=== PATIENT | male | born 1990 | race African-American/Black ===

== ENCOUNTER 2017-12-14 02:08 | Emergency (ER) | payer SELFPAY ==
[2017-12-14 02:26] VITALS: BP 119/80; PULSE 69; TEMP 98.2; BMI 22.1
--- NOTE | 2017-12-14 02:32 | PDOC ---
History of Present Illness - General Chief Complaint: Toothache Stated Complaint: PAIN Time Seen by Provider: 12/14/17 02:24 - History of Present Illness Initial Comments: 27 year old previous healthy male presenting with 6 days of upper right tooth ache. Mak snot recall trauma to the tooth and hasn't had issues with it before. Does not have a regular dentist. Denies fevers, chills nausea vomiting, diarrhea , chest pain, SOB, facial swelling, or other sick symptoms. 12/14/17 03:23 Past History - Past Medical History Allergies/Adverse Reactions: Allergies Allergy/AdvReac Type Severity Reaction Status Date / Time No Known Allergies Allergy Verified 12/14/17 02:28 Home Medications: Ambulatory Orders Ibuprofen [Motrin -] 400 mg PO PRN 12/14/17 Oxycodone HCl/Acetaminophen [Percocet 5-325 mg Tablet -] 1 combo PO Q6H PRN #3 tablet MDD 3 12/14/17 COPD: No - Immunization History Immunization Up to Date: Yes - Suicide/Smoking/Psychosocial Hx Smoking History: Never smoked Have you smoked in the past 12 months: No Information on smoking cessation initiated: No Hx Alcohol Use: No Drug/Substance Use Hx: No Substance Use Type: None Review of Systems - Review of Systems Constitutional: No: Chills, Diaphoresis, Fever HEENTM: No: Blurred Vision Respiratory: No: Cough, Shortness of Breath, Wheezing Cardiac (ROS): No: Irregular Heart Rate : No: Burning, Dysuria Musculoskeletal: No: Joint Pain, Muscle Pain Integumentary: No: Erythema, Lesions, Rash Neurological: No: Numbness, Paresthesia, Tingling Psychiatric: No: Anxiety, Depression *Physical Exam - Vital Signs Last Vital Signs Temp Pulse Resp BP Pulse Ox 98.2 F 69 20 119/80 99 12/14/17 02:22 12/14/17 02:22 12/14/17 02:22 12/14/17 02:22 12/14/17 02:22 - Physical Exam General Appearance: Yes: Nourished, Appropriately Dressed, Apparent Distress, Mild Distress HEENT: positive: EOMI, SHAHNAZ, Normal Voice, Pharynx Normal. negative: Normal ENT Inspection (2nd tooth in poor condition with black appearance. Gums are discolored globally. No pocket of swelling or fluctance near tooth. apthous ulcer on side opposite affected tooth.) Neck: positive: Trachea midline, Normal Thyroid. negative: Tender Respiratory/Chest: positive: Lungs Clear, Normal Breath Sounds. negative: Chest Tender, Respiratory Distress, Accessory Muscle Use Cardiovascular: positive: Regular Rhythm, Regular Rate Gastrointestinal/Abdominal: positive: Normal Bowel Sounds, Flat, Soft. negative : Tender Musculoskeletal: positive: Normal Inspection Extremity: positive: Normal Capillary Refill, Normal Inspection, Normal Range of Motion Integumentary: positive: Normal Color, Dry, Warm Neurologic: positive: Fully Oriented, Alert, Normal Mood/Affect, Normal Response Procedures - Additional Procedures Additional Procedures: other (Dental Block) Progress: 2 CCs of lidocaine were injected superior posterior and towards the line between the 2nd and third molar on the patient's right upper mouth to achieve a dental block. No ill effects were noted and patient's headache actually resolved as well. 12/15/17 14:56 Medical Decision Making - Medical Decision Making 27 year old male presenting with right tooth pain. Otherwise appears well and tolerated dental block well of 2nd tooth. Given ibuprofen 800 as well. Discharged with 4 percocets and dental urgent care follow up instructions to have tooth removed. 12/15/17 14:56 *DC/Admit/Observation/Transfer Diagnosis at time of Disposition: Tooth pain - Discharge Dispostion Disposition: HOME Condition at time of disposition: Improved Admit: No - Prescriptions Prescriptions: Oxycodone HCl/Acetaminophen [Percocet 5-325 mg Tablet -] 1 combo PO Q6H PRN #3 tablet MDD 3 PRN Reason: Pain - Referrals Referrals: [facility] [Provider Group] - Patient Instructions Printed Discharge Instructions: DI for Tooth Decay, DI for Dental Pain Additional Instructions: You need to have your tooth filled or removed by a dentist. Please follow up with dental urgent care below. [phone] [employer] Dentist in [place], [place] Address: [address] [place] [address] [place] [address] Hours: Closed Opens 9AM - Post Discharge Activity
[2017-12-14] MEDS ORDERED: IBUPROFEN 400 MG TABLET (FP) PO ONE ×2 (03:05→03:10)
--- NOTE | 2017-12-14 03:57 | PDOC ---
Attending Attestation - Resident Resident Name: Miriam Esquivel - ED Attending Attestation I have performed the following: I have examined & evaluated the patient, The case was reviewed & discussed with the resident, I agree w/resident's findings & plan, Exceptions are as noted - HPI HPI: 12/14/17 03:53 27y M no pmhx presents with R sided tooth pain x 6 days, in the upper molars. pt states it started hurting one day after he ate. no associated fever/chills. does not remember eating anything hard. on exam pt has possible fx tooth on tooth #2, no pulp material noted no erythema, fluctuance, edema no tenderness elsewhere pt given dental block withimprovement will dc with dental follow up
== END 2017-12-14 04:10 | disposition home or self-care (01) ==
LOC: JER 02:08
PROC: 3E013BZ Introduction of Anesthetic Agent into Subcutaneous Tissue, Percutaneous Approach (ICD-10-PCS; principal; 2017-12-14)
DX: K08.89 Other specified disorders of teeth and supporting structures (principal)
CPT/HCPCS: 99282-25

== ENCOUNTER 2018-02-05 06:16 | Emergency (ER) | payer OTHER ==
--- NOTE | 2018-02-05 06:19 | PDOC ---
History of Present Illness - General Chief Complaint: Pain Stated Complaint: TOOTHACHE SINCE SATURDAY Time Seen by Provider: 02/05/18 06:19 History Source: Patient Exam Limitations: No Limitations - History of Present Illness Initial Comments: 02/05/18 06:27 27M no sig PMHx with cc of pain in tooth #1 and #2 x past 3 days. Pt reports that he works nights and hasn't been able to make it to the dentist. No fever/ chills, swelling to the area. No vomiting, no other sxs. Can go to the dentist this morning, but was suffering with the pain overnight (took 4 ec tylenol tabs without relief) and is requesting pain meds to help alleviate the pain this am. Past History - Past Medical History Allergies/Adverse Reactions: Allergies Allergy/AdvReac Type Severity Reaction Status Date / Time No Known Allergies Allergy Verified 02/05/18 06:18 Home Medications: Ambulatory Orders NK [No Known Home Medication] 02/05/18 COPD: No - Immunization History Immunization Up to Date: Yes - Suicide/Smoking/Psychosocial Hx Smoking History: Never smoked Have you smoked in the past 12 months: No Hx Alcohol Use: No Drug/Substance Use Hx: No Substance Use Type: None Review of Systems - Review of Systems Constitutional: No: Chills, Fever HEENTM: Yes: Mouth Pain, Dental Problems. No: Throat Swelling, Difficulty Swallowing, Mouth Swelling Respiratory: No: Cough, Shortness of Breath Cardiac (ROS): No: Chest Pain Musculoskeletal: No: Back Pain, Joint Pain Integumentary: No: Bruising Neurological: Yes: Headache *Physical Exam - Physical Exam General Appearance: Yes: Nourished, Appropriately Dressed. No: Disheveled HEENT: positive: Other (tooth #2 broken, no swelling around the tooth/no fluctuance/no erythema) Respiratory/Chest: negative: Respiratory Distress Cardiovascular: positive: Regular Rhythm, Regular Rate Extremity: positive: Normal Inspection, Normal Range of Motion Neurologic: positive: Fully Oriented, Alert, Normal Mood/Affect, Normal Response Medical Decision Making - Medical Decision Making 02/05/18 06:31 Pt with dental pain, has a dentist which isn't open yet. +broken tooth #2. No sign of abscess, no systemic sxs. Will give toradol IM and percocet PO (pt is not driving home) in ED and recommend strongly that pt go to dentist this morning - pt agrees. Dc home. *DC/Admit/Observation/Transfer Diagnosis at time of Disposition: Tooth pain - Discharge Dispostion Disposition: HOME Condition at time of disposition: Stable - Referrals - Patient Instructions Printed Discharge Instructions: DI for Dental Pain Additional Instructions: You were seen in the ER for dental pain. You have a broken tooth which needs to either be filled or pulled by a dentist. You were given two medications in the ER this morning (toradol, percocet) to help with your pain. YOU MUST GO TO THE DENTIST THIS MORNING, even if the pain is improved with the medication that we gave you. Your pain will not subside unless you have the tooth dealt with properly. - Post Discharge Activity
[2018-02-05 06:24] VITALS: BP 121/79; PULSE 56; TEMP 98.2; BMI 22.2
[2018-02-05] MEDS ORDERED: KETOROLAC TROMETHAMINE 60 MG/2 ML VIAL ONE (06:26)
[2018-02-05] MEDS ORDERED: KETOROLAC TROMETHAMINE 60 MG/2 ML VIAL IM ONE (06:26)
--- NOTE | 2018-02-05 16:31 | PDOC ---
Patient Follow-up (Call Back) - Post ED Follow - Up Condition at time of discharge: Stable Disposition at time of original discharge: HOME - Disposition Rx Needed: Yes Additional Instructions/Notes: Patient called stating she was unable to get appointment with her dentist today , having pain now that the medication wore off. Her dentist is able to see her in a few days. She is unable to go to dental urgent care as they do not accept her insurance. I will send rx for pain medication and abx. [facility] Reference #: [id number]- no red flags
== END 2018-02-05 06:38 | disposition home or self-care (01) ==
LOC: FER 06:16
PROC: 3E0233Z Introduction of Anti-inflammatory into Muscle, Percutaneous Approach (ICD-10-PCS; principal; 2018-02-05)
DX: K08.89 Other specified disorders of teeth and supporting structures (principal)
CPT/HCPCS: 96372; 99281-25

== ENCOUNTER 2018-02-20 04:03 | Emergency (ER) | payer OTHER ==
[2018-02-20 04:11] VITALS: BP 116/73; PULSE 72; TEMP 98.4; BMI 23.6
[2018-02-20] MEDS ORDERED: AZITHROMYCIN 1 GM PACKET PO ONE (04:17)
[2018-02-20] MEDS ORDERED: AZITHROMYCIN 1 GM PACKET ONE (04:20)
--- NOTE | 2018-02-20 04:20 | PDOC ---
History of Present Illness - General Chief Complaint: Penile Drainage Stated Complaint: STD Time Seen by Provider: 02/20/18 04:15 History Source: Patient Exam Limitations: No Limitations - History of Present Illness Initial Comments: 02/20/18 04:16 This is a 27-year-old male who comes in complaining of penile discharge and an STD. Patient last had unprotected sex approximately 2 weeks ago his partner informed him today that she was diagnosed with an STD. Patient denies any other history of STDs. PAST MEDICAL HISTORY: no significant history PAST SURGICAL HISTORY: no significant history FAMILY HISTORY: no pertinant history SOCIAL HISTORY: Pt lives with family and is employed. MEDICATIONS: reviewed ALLERGIES: As per nursing notes Review of Systems General: No fevers or chills, no weakness, no weight loss HEENT: No change in vision. No sore throat,. No ear pain CardioVascular: No chest pain or shortness of breath Respiratory:No cough, or wheezing. Gastrointestinal: no nausea, vomitting, diarrhea or constipation, No rectal bleeding Genitourinary: No dysuria, hematuria, or frequency, penile discharge Musculoskeletal: No joint or muscle pain or swelling Neurologic: No headache, vertigo, dizziness or loss of consciousness Psychiatric: nor depression Skin: No rashes or easy bruising Endocrine: no increased thirst or abnormal weight change Allergic: no skin or latex allergy All other systems reviewed and normal GENERAL: The patient is awake, alert, and fully oriented, in no acute distress. HEAD: Normal with no signs of trauma. EYES: Pupils equal, round and reactive to light, extraocular movements intact, sclera anicteric, conjunctiva clear. EXTREMITIES: Normal range of motion, no edema. patient penis is a circumcised. There is no penile lesions, there is no penile discharge however culture was obtained. NEUROLOGICAL: Normal speech, normal gait. grossly intact PSYCH: Normal mood, normal affect. SKIN: Warm, Dry, normal turgor, no rashes or lesions noted. Assessment and plan: This is a 27-year-old male who comes in complaining of unprotected sex and his partner was recently diagnosed with an STD. Patient had and chlamydia culture sent and will be treated with ceftriaxone and azithromycin. Patient discharged home. Past History - Past Medical History Allergies/Adverse Reactions: Allergies Allergy/AdvReac Type Severity Reaction Status Date / Time No Known Allergies Allergy Verified 02/05/18 06:18 Home Medications: Ambulatory Orders NK [No Known Home Medication] 02/20/18 COPD: No - Immunization History Immunization Up to Date: Yes - Suicide/Smoking/Psychosocial Hx Smoking History: Never smoked Have you smoked in the past 12 months: No Number of Cigarettes Smoked Daily: 0 Information on smoking cessation initiated: No Hx Alcohol Use: No Drug/Substance Use Hx: No Substance Use Type: None *Physical Exam - Vital Signs Last Vital Signs Temp Pulse Resp BP Pulse Ox 98.4 F 72 14 116/73 98 02/20/18 04:08 02/20/18 04:08 02/20/18 04:08 02/20/18 04:08 02/20/18 04:08 *DC/Admit/Observation/Transfer Diagnosis at time of Disposition: STD (male) - Discharge Dispostion Disposition: HOME Condition at time of disposition: Good Admit: No - Referrals - Patient Instructions Printed Discharge Instructions: Facts About Sexually Transmitted Infections Additional Instructions: U been treated for chlamydia and gonorrhea. A test was sent for syphilis it is positive we will call you in your needs some additional antibiotics. Return to the emergency department immediately with ANY new, persistent or worsening symptoms. Continue any medications as previously prescribed by your physician. You should follow up with your primary doctor as soon as possible regarding today's emergency department visit. . Please make sure your doctor reviews the results of your emergency evaluation. Thank you for coming to the Emergency Department today for your care. It was a pleasure to see you today. Please note that your evaluation is INCOMPLETE until you follow-up with your doctor. - Post Discharge Activity
[2018-02-20] MEDS ORDERED: LIDOCAINE HCL 2% (20ML MULTI-DOSE VIAL) NR ONE (04:21)
== END 2018-02-20 04:36 | disposition home or self-care (01) ==
LOC: FER 04:03
DX: A64 Unspecified sexually transmitted disease (principal)
CPT/HCPCS: 36415; 86593; 87491; 87591; 99282-25